=== PATIENT | female | born 1965 | race Caucasian/White ===

== ENCOUNTER → 2018-01-03 11:36 | Outpatient (CLI) | payer OTHER, SELFPAY ==
--- NOTE | 2018-01-03 | DI.MRI.S_ITS ---
PROCEDURE: MR HUMERUS LT WO CON INDICATIONS: SPONTANEOUS RUPTURE TECHNIQUE: Noncontrast coronal and sagittal T1 spin echo and STIR; axial T1 spin echo and T2 fast spin echo with fat saturation through the left humerus. COMPARISON: None. FINDINGS: Image quality: Excellent. Bones: The visualized bone marrow demonstrates normal signal on all sequences. The overlying cortex appears intact. No fractures lines or intra-osseous lesions. Soft tissues: The scanned muscles demonstrate normal overall bulk and internal signal. Subcutaneous tissues appear normal as well. No soft tissue masses are present. Visualized portions of the long head biceps tendon appear grossly intact although not well visualized in the intra-articular region and this could be further assessed with dedicated shoulder MRI. Visualized remaining muscle and tendon signals appear within normal limits. Subscapularis thickening and tendinopathy. There also appears to be supraspinatus thickening and intrasubstance signal change. This could also be better evaluated on a dedicated shoulder MRI. IMPRESSION: Long head biceps tendon appears grossly intact although the intra-articular segment would be better evaluated with dedicated shoulder MRI as clinically warranted. Signal change and thickening of the supraspinatus tendon which would be better assessed with dedicated shoulder MRI. Subacromial/subdeltoid bursitis. Dictated by: Chandan Gresham M.D. on 01/03/2018 at 13:34 Approved by: Chandan Gresham M.D. on 01/03/2018 at 13:49
== END ==
PROVIDERS: PCP Specialist; Visit Provider Family Medicine Geriatric Medicine
DX: M66.822 Spontaneous rupture of other tendons, left upper arm (principal); M75.52 Bursitis of left shoulder
CPT/HCPCS: 73218

== ENCOUNTER → 2018-02-14 17:16 | Outpatient (CLI) | payer OTHER, SELFPAY ==
--- NOTE | 2018-02-14 17:23 | DI.MRI.S_ITS ---
PROCEDURE: MR SHOULDER LT WO CON INDICATIONS: SPONTANEOUS RUPTURE OF OTHER TENDONS, UNSPECIFIED. LEFT ARM/BICEP PAIN TECHNIQUE: Noncontrast oblique coronal T2 fast spin echo with fat saturation, oblique sagittal T1 spin echo and T2 fast spin echo with fat saturation, axial T1 spin echo and T2 fast spin echo with fat saturation through the shoulder. COMPARISON: None. FINDINGS: Image quality: Excellent. Rotator cuff: Tendinosis moderate grade articular surface partial thickness tear involving distal supraspinatus at its insertion on greater tuberosity of humeral head is seen extending medially into musculotendinous junction. Low-grade bursal surface partial-thickness tear involving anterior fibers of the distal supraspinatus is also seen. Tendinosis and low to moderate grade articular surface partial thickness tear involving the distal infraspinatus at its insertion the humeral head is seen. Tendinosis or low-grade partial-thickness tear involving the superior to mid fibers of the distal subscapularis is seen. Sagittal images demonstrate mild supraspinatus muscle atrophy. Bones and bursae: No bone marrow contusions or fractures. Mild to moderate acromioclavicular joint and glenohumeral joint osteoarthritis is seen. The acromion demonstrates conventional anatomy, without an os acromiale. Small amount of fluid is seen within subacromial subdeltoid bursa. No gross loose body. Capsule and soft tissues: In the absence of intra-articular contrast, there is signal abnormality and contour regularity involving superior anterior labrum from 12 to 1:00 position and anterior-inferior labrum at 4 to 6:00 position suggestive of superior anterior labral tear and anterior inferior labral tear. The glenohumeral ligaments appear intact. The long head of the biceps tendon demonstrates normal location and morphology. The rotator interval appears normal, without fibrosis. The coracohumeral ligament is normal in thickness. IMPRESSION: 1. Tendinosis and moderate grade articular and bursal surface partial-thickness tear involving distal supraspinatus at its insertion on greater tuberosity extending to musculotendinous junction. Tendinosis and low-grade articular surface partial-thickness involving the supraspinatus. Tendinosis and low to moderate grade partial-thickness tear involving the superior to mid fibers of distal subscapularis. Mild supraspinatus muscle atrophy. 2. Suggestion of superior anterior labral tear at 12 to 1:00 position and anterior-inferior labral tear 4 to 6:00 position. 3. Mild to moderate acromioclavicular joint and glenohumeral joint osteoarthritis. Dictated by: Federico Maldonado M.D. on 02/15/2018 at 8:27 Approved by: Federico Maldonado M.D. on 02/15/2018 at 8:39
== END ==
PROVIDERS: PCP Specialist; Visit Provider Family Medicine Geriatric Medicine
DX: M75.112 Incomplete rotator cuff tear or rupture of left shoulder, not specified as traumatic (principal); M19.012 Primary osteoarthritis, left shoulder
CPT/HCPCS: 73221

== ENCOUNTER → 2019-01-13 07:24 | Outpatient (CLI) | payer OTHER, SELFPAY ==
--- NOTE | 2019-01-13 09:26 | PM.TREADMILL ---
Cardiac Stress Test Report Referral & Results Date Patient Seen: 01/13/19 Requesting provider: Nancy Cisneros Indication: Chest discomfort Rest ECG: Unremarkable Procedure Note: Today following both written and verbal informed consent, the patient was exercised according to a standard Paulino protocol. The patient exercised for a total of 8 minutes 4 seconds achieving a maximum heart rate of 143. Patient's maximum systolic blood pressure was 180. This was an estimated 10.1 MET's. There are no ST-T segment changes identified Normal heart rate and blood pressure response to exercise No dysrhythmia Functional aerobic impairment rates-5% on the active scale or 105% normal Impression: No evidence of ischemia, average to better than average exercise capacity Please note: Actual ECG tracings can be found in the PACS system.
== END ==
PROVIDERS: PCP Family Medicine Geriatric Medicine; Visit Provider Family Medicine
DX: R07.89 Other chest pain (principal)
CPT/HCPCS: 93016; 93017; 93018

== ENCOUNTER → 2019-05-08 18:41 | Outpatient (CLI) | payer OTHER, SELFPAY ==
--- NOTE | 2019-05-08 | DI.MRI.S_ITS ---
PROCEDURE: MR KNEE RT WO CON INDICATIONS: PAIN IN RIGHT KNEE TECHNIQUE: Noncontrast sagittal PD fast spin echo and T2 fast spin echo with fat saturation, sagittal 3-D FLASH with fat saturation; coronal T1 spin echo and PD fast spin echo with fat saturation, and axial PD fast spin echo with fat saturation through the knee. COMPARISON: None. FINDINGS: Image quality: Excellent. Menisci: There is suggestion of a subtle oblique tear involving posterior horn of medial meniscus extending to inferior articulating surface. No evidence of focal lateral meniscal tear. The meniscal root ligaments appear intact. Cruciate ligaments: There is suggestion of ACL sprain/low-grade intrasubstance partial thickness tear. No full-thickness ACL rupture. Medial structures: Moderate grade MCL sprain/partial thickness tear near its femoral insertion is seen.. The posterior oblique ligament, semimembranosus tendon insertions, oblique popliteal ligament, and meniscocapsular junction appear intact. Visualized portions of the pes anserinus tendons appear normal. No abnormal bursal fluid. Lateral structures: The lateral collateral ligament, long and short heads of the biceps femoris tendon appear intact. The popliteus tendon appears normal; the popliteofibular ligament appears intact. The posterosuperior and anteroinferior popliteomeniscal fascicles appear intact. The arcuate and fabellofibular ligaments appear intact, on either side of the lateral inferior geniculate artery. Iliotibial band appears normal. Anterior structures: The quadriceps and patellar tendons appear intact. Patellar alignment is normal. No femoral trochlear dysplasia or ventral trochlear prominence. No edema in the infrapatellar fat pad. Bones and cartilage: No bone marrow contusions or fractures. The cartilage of the medial and lateral femorotibial compartments appears normal in thickness. Extensive moderate to high-grade chondromalacia involving apex and medial facet of patella cartilage is seen with suggestion of underlying tiny osteochondral lesions in the apex. Joint space: Small amount of joint fluid is seen. There is suggestion of a 1.5 x 1 cm oval old loose body anterior to femoral tibial joint near anterior cruciate ligament insertion. No Ayala's cyst. Normal appearing synovial plicae are incidentally noted. IMPRESSION: 1. 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 2. Small amount of joint fluid and possible intra-articular loose body anterior to femoral tibial joint near ACL distal insertion. 3. Suggestion of sprain/low-grade partial-thickness tear involving anterior cruciate ligament. No full-thickness ACL rupture. PCL is intact. 4. Moderate grade sprain/partial thickness tear involving proximal to mid medial collateral ligament. 5. Subtle signal abnormality involving inferior articulating surface of medial meniscus posterior horn concerning for subtle oblique tear. There is no evidence of focal lateral meniscal tear. Dictated by: Federico Maldonado M.D. on 05/09/2019 at 8:33 Approved by: Federico Maldonado M.D. on 05/09/2019 at 8:44
== END ==
PROVIDERS: PCP Family Medicine Geriatric Medicine; Referring Provider Student in an Organized Health Care Education/Training Program; Visit Provider Student in an Organized Health Care Education/Training Program
DX: M25.561 Pain in right knee (principal); S83.241A Other tear of medial meniscus, current injury, right knee, initial encounter; S83.411A Sprain of medial collateral ligament of right knee, initial encounter; M22.41 Chondromalacia patellae, right knee
CPT/HCPCS: 73721

== ENCOUNTER 2021-06-18 11:55 | Emergency (ER) | payer OTHER, SELFPAY ==
[2021-06-18 12:37] VITALS: BP 144/71; PULSE 85; RESP 20; TEMP 35.8; O2SAT 98; BMI 30.9
--- NOTE | 2021-06-18 12:53 | ED_ITS ---
HPI - General Adult General Chief complaint: Abdominal Pain Stated complaint: Thinks Experiencing Gall Bladder Issues Time Seen by Provider: 06/18/21 12:52 Source: patient Mode of arrival: Family Vehicle History of Present Illness HPI narrative: 55-year-old woman with 4-5 years of left subscapular/abdominal pain. She comes in open have HIDA scan and finding explanations for her chronic pain today. Her history is reviewed she had abdominal CT in 2018 in November of 2018 she had assessed chest CT in June of 2021 and an ultrasound of her abdomen and gallbladder in May of 2021 of which have been unremarkable. No evidence of obvious underlying physiologic abnormality to explain her pain. She describes her pain is coming in episodes lasting anywhere from 2-5 days at a time once they start she has difficulty eating if she does eat she feels that things get stuck in her midesophagus and exacerbate her pain. She finds that she has significant increased burping and flatus during these episodes. She has not been losing weight, no fevers no vomiting no diarrhea. No headaches. She is getting frustrated and struggling significantly with the lack of diagnosis and continued persistent pain. Related Data Home Medications Medication Instructions Recorded Confirmed Marijuana Suppositories OK 08/15/17 08/15/17 Previous Rx's Medication Instructions Recorded amoxicillin 500 mg capsule 1,000 mg PO BID #56 cap 08/15/17 clarithromycin 500 mg tablet 500 mg PO BID #28 tab 08/15/17 omeprazole 20 mg capsule,delayed See Rx Instructions .ROUTE 08/15/17 release .COMPLEX #72 cap Allergies Allergy/AdvReac Type Severity Reaction Status Date / Time Epinephrine Allergy Unknown Uncoded 08/15/17 15:19 Review of Systems Review of Systems Narrative: Remainder of complete review of systems is otherwise unremarkable except for that included in the HPI. Patient History Family History Family/Other Cancer Father Hypertension Social History household members: spouse Smoking Status: Former smoker alcohol intake: current Smoking Status: Former smoker tobacco type: cigarettes alcohol intake frequency: 0-2 drinks per day Substance Use Type: marijuana Exam Initial Vital Signs Initial Vital Signs: Vital Signs Temperature 96.5 F L 06/18/21 12:37 Pulse Rate 85 06/18/21 12:37 Respiratory Rate 20 06/18/21 12:37 Blood Pressure 144/71 H 06/18/21 12:37 Pulse Oximetry 98 06/18/21 12:37 General: Alert appropriate in no acute distress Respiratory: Able to speak in full sentences, no obvious respiratory distress Abdomen: No acute pain on palpation, good bowel tones Skin: No obvious rashes, warm and dry Neurologic: Grossly intact no obvious asymmetries or abnormalities Psych: appropriate insight and affect, cooperative Course Orders Ordered: ED Orders 06/18/21 12:32 EKG-12 Lead Stat 06/18/21 13:13 Complete Blood Count AUTO DIFF Stat Comprehensive Metabolic Panel Stat Lipase Stat Troponin & CK Cardiac Panel Stat 06/18/21 13:38 US abdomen limited Stat 06/18/21 13:50 Urine Culture Stat Urine Microscopic Stat Vital Signs Vital signs: Vital Signs - 8 hr 06/18/21 12:37 06/18/21 15:35 Temperature 96.5 F L 97.8 F Pulse Rate 85 71 Respiratory Rate 20 18 Blood Pressure 144/71 H 141/92 H Pulse Oximetry 98 98 Medical Decision Making Lab Data Result diagrams: 06/18/21 13:13 06/18/21 13:13 Labs: Lab Results 06/18/21 06/18/21 06/18/21 Range/Units 13:13 13:13 13:13 WBC 8.5 (4.5-11.0) X10^3/uL RBC 4.96 (4.0-5.2) X10^6/uL Hgb 15.0 (12.0-16.0) g/dL Hct 44.1 (36-46) % MCV 88.9 (80-100) fL MCH 30.2 (26-34) PG MCHC 34.0 (30-36) % RDW 13.7 (11.6-14.8) % Plt Count 320 (150-400) X10^3/uL Neut % (Auto) 61.6 (50-75) % Lymph % (Auto) 26.3 (25-40) % [place] % (Auto) 9.5 (3-14) % Eos % (Auto) 2.0 (2-4) % Baso % (Auto) 0.6 (0-2) % Neut # (Auto) 5200 (4186-0311) /uL Lymph # (Auto) 2200 (8430-7722) /uL [place] # (Auto) 800 (0-900) /uL Eos # (Auto) 200 (0-450) /uL Baso # (Auto) 100 (0-100) /uL Sodium 142 (137-145) mmol/L Potassium 4.2 (3.4-5.1) mmol/L Chloride 106 (98-107) mmol/L Carbon Dioxide 26 (22-32) mmol/L BUN 11 (7-17) mg/dL Creatinine 0.96 (0.52-1.04) mg/dL Estimated GFR > 60 (>60) mL/min BUN/Creatinine Ratio 11.5 (6-22) Glucose 103 H (70-100) mg/dL Calcium 9.9 (8.4-10.2) mg/dL Total Bilirubin 0.7 (0.2-1.3) mg/dL AST 24 (14-36) IU/L ALT 17 (<35) IU/L Alkaline Phosphatase 72 (38-126) U/L Total Creatine Kinase 71 (30-135) U/L CK-MB (CK-2) TNP CK-MB (CK-2) Rel Index TNP Troponin I < 0.012 (0.01-0.034) ng/mL Total Protein 8.0 (6.3-8.2) g/dL Albumin 5.0 (3.5-5.0) g/dL Globulin 3.0 (1.7-4.1) g/dL Albumin/Globulin Ratio 1.7 (1.0-2.8) Lipase 210 (23-300) U/L Urine RBC (0-5/HPF) Urine WBC (0-5/HPF) Ur Squamous Epith Cells (0-5/HPF) Urine Bacteria (None) Ur Culture Indicated? 06/18/21 Range/Units 13:50 WBC (4.5-11.0) X10^3/uL RBC (4.0-5.2) X10^6/uL Hgb (12.0-16.0) g/dL Hct (36-46) % MCV (80-100) fL MCH (26-34) PG MCHC (30-36) % RDW (11.6-14.8) % Plt Count (150-400) X10^3/uL Neut % (Auto) (50-75) % Lymph % (Auto) (25-40) % [place] % (Auto) (3-14) % Eos % (Auto) (2-4) % Baso % (Auto) (0-2) % Neut # (Auto) (1112-3994) /uL Lymph # (Auto) (9230-6634) /uL [place] # (Auto) (0-900) /uL Eos # (Auto) (0-450) /uL Baso # (Auto) (0-100) /uL Sodium (137-145) mmol/L Potassium (3.4-5.1) mmol/L Chloride (98-107) mmol/L Carbon Dioxide (22-32) mmol/L BUN (7-17) mg/dL Creatinine (0.52-1.04) mg/dL Estimated GFR (>60) mL/min BUN/Creatinine Ratio (6-22) Glucose (70-100) mg/dL Calcium (8.4-10.2) mg/dL Total Bilirubin (0.2-1.3) mg/dL AST (14-36) IU/L ALT (<35) IU/L Alkaline Phosphatase (38-126) U/L Total Creatine Kinase (30-135) U/L CK-MB (CK-2) CK-MB (CK-2) Rel Index Troponin I (0.01-0.034) ng/mL Total Protein (6.3-8.2) g/dL Albumin (3.5-5.0) g/dL Globulin (1.7-4.1) g/dL Albumin/Globulin Ratio (1.0-2.8) Lipase (23-300) U/L Urine RBC 1-5/hpf (0-5/HPF) Urine WBC 0-1/hpf (0-5/HPF) Ur Squamous Epith Cells 0-1 /hpf (0-5/HPF) Urine Bacteria None seen (None) Ur Culture Indicated? Culture not indicate Urine Dip Bedside Urine Glucose Negative Bedside Urine Bilirubin - Negative Bedside Urine Ketone - Negative Urine Specific [place] 1.025 Bedside Urine Occult Blood ++ Bedside Urine pH 5.5 Bedside Urine Protein - Negative Bedside Urine Urobilinogen - Negative Bedside Urine Nitrite - Negative Bedside Urine Leukocytes - Negative Esterase Point of care testing: Urine Dip Bedside Urine Glucose Negative Bedside Urine Bilirubin - Negative Bedside Urine Ketone - Negative Urine Specific [place] 1.025 Bedside Urine Occult Blood ++ Bedside Urine pH 5.5 Bedside Urine Protein - Negative Bedside Urine Urobilinogen - Negative Bedside Urine Nitrite - Negative Bedside Urine Leukocytes - Negative Esterase MDM Narrative Medical decision making narrative: 55-year-old woman with abdominal/subscapular pain intermittent present for a number of years extensive workup to date continuing to be a problem. Explained to her that unfortunately we were not able to do emergent HIDA studies. However, this may be the next appropriate study for her. She has no acute findings at this time. She does have 2+ hematuria which has been present and and unexplained for a number of years. Again CT scans repeated of the abdomen twice and recently of the chest have all been negative for any type of significant pathology. Given the dysphagia symptoms that she experiences in the middle of her ?flares? my suggestion to her was GI consultation. She notes that she did have both upper and lower endoscopies in 2018 that were reportedly unremarkable. It is not clear whether she was having these episodes of pain at that time or not. All of her questions are addressed, suggestions were offered, no additional workup is required in the emergency room today and she is safe for discharge home. Discharge Plan Departure Patient Disposition: Home Clinical Impression: Abdominal pain Qualifiers: Abdominal location: left upper quadrant Qualified Code(s): R10.12 - Left upper quadrant pain Instructions: DI for Abdominal Pain-Adult Activity Restrictions/Additional Instructions: Thank you for coming in today This pain that you have been suffering with for the last years sounds terrible. Fortunately, with the workup that you have had done this does not seem to be immediately life-threatening or a cancer or tumor to be concerned with. In listening to your description, I agree that this seems to be something with in your GI system causing your pain. The next step in your workup may well be a HIDA study, however, this is never an emergency room study and always has to be arranged as an outpatient. Please ask your primary care doctor to help with that. I also think that a gastroenterology referral to have them look at your studies, examine you and decide what the next steps might be in figuring out the source of your pain is going to be the correct direction for you to follow. I wish you the very best Prescriptions: No Action Marijuana Suppositories OK 0RF amoxicillin 500 mg capsule 1,000 mg PO BID Qty: 56 0RF clarithromycin 500 mg tablet 500 mg PO BID Qty: 28 0RF omeprazole 20 mg capsule,delayed release(DR/EC) See Rx Instructions .ROUTE .COMPLEX Qty: 72 0RF Dose Instruction: Take 1 pill twice a day an hour before meals for 2 weeks. Then take 1 pill an hour before breakfast daily for 6 weeks ; swallow whole; do not crush, chew, dissolve, cut, break Rx Instructions: Take 1 pill twice a day an hour before meals for 2 weeks. Then take 1 pill an hour before breakfast daily for 6 weeks ; swallow whole; do not crush, chew, dissolve, cut, break Referrals: Farida Grayson MD [Primary Care Provider] -
[2021-06-18 13:32] LABS: Add Manual Diff / Slide Review NO; Basophils Absolute Auto 100 /uL (0-100); Basophils Percent Auto 0.6 % (0-2); Eosinophils Absolute Auto 200 /uL (0-450); Hematocrit 44.1 % (36-46); Lymphocytes Absolute Auto 2200 /uL (1100-4500); Lymphocytes Percent Auto 26.3 % (25-40); Mean Corpuscular Hemoglobin 30.2 PG (26-34); Mean Corpuscular Volume 88.9 fL (80-100); Monocytes Absolute Auto 800 /uL (0-900); Monocytes Percent Auto 9.5 % (3-14); Neutrophils Absolute Auto 5200 /uL (1500-7000); Neutrophils Percent Auto 61.6 % (50-75); Platelet Count 320 X10^3/uL (150-400); Red Blood Cell Count 4.96 X10^6/uL (4.0-5.2); Red Cell Distribution Width 13.7 % (11.6-14.8); White Blood Cell Count 8.5 X10^3/uL (4.5-11.0)
[2021-06-18 13:34] LABS: Alanine Aminotransferase 17 IU/L (<35); Albumin Globulin Ratio 1.7 (1.0-2.8); Alkaline Phosphatase 72 U/L (38-126); Aspartate Aminotransferase 24 IU/L (14-36); BUN Creatinine Ratio 11.5 (6-22); Bilirubin Total 0.7 mg/dL (0.2-1.3); Blood Urea Nitrogen 11 mg/dL (7-17); Calcium 9.9 mg/dL (8.4-10.2); Carbon Dioxide 26 mmol/L (22-32); Chloride 106 mmol/L (98-107); Creatine Kinase 71 U/L (30-135); Estimated Glomerular Filt Rate > 60 mL/min (>60); Glucose 103 mg/dL (70-100); HEMOLYSIS < 15 (0-50); Lipase 210 U/L (23-300); Potassium 4.2 mmol/L (3.4-5.1); Sodium 142 mmol/L (137-145)
[2021-06-18 13:46] LABS: Troponin I < 0.012 ng/mL (0.01-0.034)
[2021-06-18 14:18] LABS: Bacteria Urine None Seen; RBC Urine 1-5/HPF (0-5/HPF); Squamous Epithelial Cell Urine 0-1 /HPF (0-5/HPF); WBC Urine 0-1/HPF (0-5/HPF)
[2021-06-18 15:35] VITALS: BP 141/92; PULSE 71; RESP 18; TEMP 36.6; O2SAT 98
== END 2021-06-18 15:35 | disposition home or self-care (01) ==
PROVIDERS: Emergency Provider Emergency Medicine; PCP Family Medicine
DX: R10.12 Left upper quadrant pain (principal); R03.0 Elevated blood-pressure reading, without diagnosis of hypertension
CPT/HCPCS: 36415; 80053; 81003; 81015; 82550; 83690; 84484; 85025; 87086; 93005; 99281; 99283